=== PATIENT | female | born 1990 | race Caucasian/White ===

== ENCOUNTER 2024-06-19 11:53 | Emergency (ER) | payer OTHER ==
[2024-06-19 12:05] VITALS: BP 101/66; PULSE 87; RESP 17; TEMP 98.2; BMI 30.6
[2024-06-19 13:20] LABS: BASO % 0.7 % (0-2.0); EOS % 0.7 % (0-4.5); HEMATOCRIT 33.9 % (32.4-45.2); HEMOGLOBIN 11.4 GM/dL (10.7-15.3); LYMPH % 21.8 % (8-40); MCH 28.8 pg (25.7-33.7); MCHC 33.7 g/dl (32.0-36.0); MEAN CELL VOLUME 85.4 fl (80-96); MEAN PLT VOLUME 8.4 fl (7.5-11.1); MONO % 5.8 % (3.8-10.2); PLATELET COUNT 240 10^3/uL (134-434); RBC 3.97 M/mm3 (3.60-5.2); WHITE BLOOD COUNT 7.2 K/mm3 (4.0-10.0)
[2024-06-19 13:37] LABS: POTASSIUM 3.9 mmol/L (3.5-5.1)
[2024-06-19 13:38] LABS: CALCIUM 8.6 mg/dL (8.5-10.1)
[2024-06-19 13:39] LABS: ALBUMIN 2.9 g/dl (3.4-5.0); BLOOD UREA NITROGEN 4.1 mg/dL (7-18)
[2024-06-19 13:42] LABS: CREATININE 0.4 mg/dL (0.55-1.3)
[2024-06-19 13:44] LABS: BILIRUBIN,TOTAL 0.8 mg/dL (0.2-1); TOT PROT 6.2 g/dl (6.4-8.2)
[2024-06-19 13:55] LABS: EPI CELLS >36 /uL (0-25.1); HYALINE CASTS 0 /uL (0-3.1); PH,URINE 7.5 (5.0-8.0); URINE APPEARANCE CLEAR; URINE BACTERIA 689 /uL (0-1359); URINE BILIRUBIN NEGATIVE (NEGATIVE); URINE COLOR YELLOW; URINE GLUCOSE (UA) NEGATIVE (NEGATIVE); URINE KETONE NEGATIVE (NEGATIVE); URINE LEUK ESTERASE 1+ (NEGATIVE); URINE NITRITE NEGATIVE (NEGATIVE); URINE PROTEIN NEGATIVE (NEGATIVE); URINE RBC 28 /uL (0-23.9); URINE UROBILINOGEN 0.2 mg/dL (0.2-1.0); URINE WBC 14 /uL (0-25.8)
[2024-06-19 14:56] LABS: HIV INTERPRETATION NEGATIVE (NEGATIVE)
== END 2024-06-19 13:56 | disposition home or self-care (01) ==
LOC: JER 11:53
DX: O99.891 Other specified diseases and conditions complicating pregnancy (principal); R51.9 Headache, unspecified; Z3A.23 23 weeks gestation of pregnancy
CPT/HCPCS: 36415; 76815; 80053; 81003; 85025; 87086; 87389; 87522; 99283-25

== ENCOUNTER 2024-10-15 05:10 | Inpatient (IN) | payer OTHER ==
[2024-10-15 06:26] VITALS: BMI 37.1
[2024-10-15 06:27] LABS: BASO % 0.5 % (0-2.0); EOS % 0.9 % (0-4.5); HEMATOCRIT 28.8 % (32.4-45.2); LYMPH % 23.2 % (8-40); MCH 22.5 pg (25.7-33.7); MCHC 31.3 g/dl (32.0-36.0); MEAN CELL VOLUME 71.8 fl (80-96); MEAN PLT VOLUME 9.4 fl (7.5-11.1); MONO % 9.4 % (3.8-10.2); PLATELET COUNT 222 10^3/uL (134-434); RBC 4.02 M/mm3 (3.60-5.2); RDW 18.2 % (11.6-15.6); WHITE BLOOD COUNT 5.7 K/mm3 (4.0-10.0)
[2024-10-15 06:34] LABS: INR 0.89 (0.83-1.09); PROTHROMBIN TIME (PATIENT) 10.1 SEC (9.7-13.0)
[2024-10-15 06:37] LABS: ACTIVATED PTT 25.1 SECONDS (25.2-36.5)
[2024-10-15 06:40] LABS: POTASSIUM 3.9 mmol/L (3.5-5.1)
[2024-10-15 06:45] LABS: CREATININE 0.5 mg/dL (0.55-1.3)
[2024-10-15] MEDS: LACTATED RINGERS SOLUTION 1,000 ML/1,000 ML INFUS.BAG IV SCH (10:00)
[2024-10-15] MEDS: DINOPROSTONE 10 MG VAGINAL SUPPOSITORY VG ONE (11:24)
[2024-10-15] MEDS ORDERED: PROMETHAZINE HCL 25 MG/1 ML VIAL ONE (18:02)
[2024-10-15] MEDS ORDERED: BUTORPHANOL TARTRATE 2 MG/ML VIAL ONE (18:02)
[2024-10-15] MEDS: PROMETHAZINE HCL 25 MG/1 ML VIAL IVPB PRN (18:09)
[2024-10-15] MEDS: BUTORPHANOL TARTRATE 2 MG/ML VIAL IVPUSH PRN (18:09)
[2024-10-16] MEDS ORDERED: FENTANYL/BUPIVACAINE/NS/PF - PCEA - 50 ML DISP.SYRIN EP ONE ×3 (01:12→10:08)
[2024-10-16] MEDS: FENTANYL/BUPIVACAINE/NS/PF - PCEA - 50 ML DISP.SYRIN EP SCH (01:15)
[2024-10-16] MEDS ORDERED: NALOXONE HCL 0.4 MG/ML VIAL IVPUSH PRN (01:18)
[2024-10-16] MEDS ORDERED: OXYTOCIN 30 UNITS in 0.9% NS 30 UNIT/500 ML INFUS.BAG IVPB ONE (05:27)
[2024-10-16] MEDS: OXYTOCIN 30 UNITS in 0.9% NS 30 UNIT/500 ML INFUS.BAG IVPB SCH (06:20)
[2024-10-16] MEDS ORDERED: AMPICILLIN SODIUM 2 GM VIAL ONE (08:52)
[2024-10-16] MEDS: AMPICILLIN - 2 GM in SODIUM CHLORIDE 100 ML IVPB ONE (08:59)
[2024-10-16] MEDS ORDERED: OXYTOCIN 20 UNITS in 0.9% NS 20 UNIT/1,000 ML INFUS.BAG IV ONE ×2 (10:35→16:22)
[2024-10-16] MEDS ORDERED: AMPICILLIN - 1 GM in SODIUM CHLORIDE 100 ML IVPB SCH (12:30)
[2024-10-16] MEDS ORDERED: LIGASURE IMPACT TP ONE (12:49)
[2024-10-16] MEDS ORDERED: ceFAZolin SODIUM 1 GM VIAL ONE (12:50)
[2024-10-16] MEDS ORDERED: OXYTOCIN 10 UNITS/ML VIAL ONE (12:50)
[2024-10-16] MEDS ORDERED: ONDANSETRON 4 MG/2 ML VIAL ONE (12:50)
[2024-10-16] MEDS ORDERED: morphine SULFATE/PF 1 MG/2 ML (2cc Syringe - QUVA) ONE (12:51)
[2024-10-16] MEDS ORDERED: oxyCODONE HCL 5 MG TABLET PO PRN (13:53)
[2024-10-16] MEDS: OXYTOCIN 20 UNITS in 0.9% NS 20 UNIT/1,000 ML INFUS.BAG IV SCH (14:20)
[2024-10-16] MEDS ORDERED: ACETAMINOPHEN INJECTION 100 ML ONE (15:56)
[2024-10-16] MEDS: ACETAMINOPHEN 1000 MG/100 ML BAG IVPB PRN (15:59)
[2024-10-16] MEDS: IBUPROFEN (CALDOLOR) 800 MG/200 ML PREMIX BAGS IVPB PRN (17:14)
[2024-10-16] MEDS: CEFAZOLIN SODIUM 2 GM in DEXTROSE 5%-WATER 100 ML IVPB SCH (19:21)
[2024-10-16] MEDS: ONDANSETRON 4 MG/2 ML VIAL IVPB PRN (21:01)
[2024-10-16] MEDS: SENNOSIDES/DOCUSATE COMBO (SENNA PLUS) TABLET (UD) PO SCH (22:00)
[2024-10-17] MEDS ORDERED: OXYTOCIN 20 UNITS in 0.9% NS 20 UNIT/1,000 ML INFUS.BAG IV ONE (00:25)
[2024-10-17 07:41] LABS: BASO % 0.3 % (0-2.0); EOS % 0.4 % (0-4.5); HEMATOCRIT 26.3 % (32.4-45.2); HEMOGLOBIN 8.1 GM/dL (10.7-15.3); LYMPH % 16.8 % (8-40); MCH 22.5 pg (25.7-33.7); MEAN CELL VOLUME 72.5 fl (80-96); MEAN PLT VOLUME 9.2 fl (7.5-11.1); MONO % 7.4 % (3.8-10.2); NEUT % 75.1 % (42.8-82.8); PLATELET COUNT 193 10^3/uL (134-434); RBC 3.62 M/mm3 (3.60-5.2); RDW 18.2 % (11.6-15.6); WHITE BLOOD COUNT 10.5 K/mm3 (4.0-10.0)
[2024-10-17] MEDS: PRENATAL VITAMINS W/ FOLIC ACID TABLET (FP) PO SCH (09:33)
[2024-10-17] MEDS: IBUPROFEN 600 MG TABLET (FP) PO PRN (09:36)
[2024-10-17] MEDS: ACETAMINOPHEN 325 MG TABLET (FP) PO PRN (12:16)
[2024-10-17] MEDS ORDERED: BISACODYL 10 MG SUPP.RECT RC PRN (13:52)
[2024-10-17] MEDS: SIMETHICONE 80 MG TAB.CHEW (FP) PO PRN (14:34)
[2024-10-19 09:18] VITALS: BP 115/70; PULSE 88; RESP 18; TEMP 97.6
[2024-10-24 08:48] LABS: POC NITRAZINE POS
== END 2024-10-19 11:34 | disposition home or self-care (01) | DRG 540 ==
LOC: JLDR 05:10 → J3W 10-16 16:45
PROVIDERS: ADMIT Obstetrics & Gynecology; ATTEND Specialist
PROC: 3E0P7VZ Introduction of Hormone into Female Reproductive, Via Natural or Artificial Opening (ICD-10-PCS; 2024-10-15)
PROC: 10D00Z1 Extraction of Products of Conception, Low, Open Approach (ICD-10-PCS; principal; 2024-10-16)
PROC: 0UB70ZZ Excision of Bilateral Fallopian Tubes, Open Approach (ICD-10-PCS; 2024-10-16)
DX: O62.1 Secondary uterine inertia (principal); O36.63X0 Maternal care for excessive fetal growth, third trimester, not applicable or unspecified; O64.0XX0 Obstructed labor due to incomplete rotation of fetal head, not applicable or unspecified; Z37.0 Single live birth; Z3A.39 39 weeks gestation of pregnancy; Z30.2 Encounter for sterilization
CPT/HCPCS: 0241U-QW; 36415; 80048; 83986-QW; 85025; 85610; 85730; 86780; 86850; 86900; 86901; 88305-TC; 88307-TC; J0131